=== PATIENT | female | born 1940 | race Caucasian/White ===

== ENCOUNTER 2018-06-11 09:06 | Outpatient (CLI) | payer MEDICARE ==
[2018-06-11 09:48] LABS: Albumin 4.4 g/dL (3.9-5); Calcium 9.4 mg/dL (8.4-10.2); Uric Acid 5.8 mg/dL (3.5-7.6)
[2018-06-11 11:45] LABS: Creatinine,Urine 172.6 mg/dL (0.1-20.0)
[2018-06-11 11:47] LABS: Microalbumin/Creatinine Ratio 6.9 ug/mg
== END 2018-06-11 09:07 | disposition home or self-care (01) ==
LOC: LAB 09:06
PROVIDERS: ATTEND Internal Medicine Nephrology
DX: N28.1 Cyst of kidney, acquired (principal)
CPT/HCPCS: 36415; 80048; 82040; 82043; 84100; 84550

== ENCOUNTER 2018-06-15 11:53 | Outpatient (CLI) | payer MEDICARE ==
--- NOTE | 2018-06-18 09:23 | Ultrasound Report ---
ULTRASOUND RENAL BILATERAL HISTORY: Cyst of kidney. TECHNIQUE: transabdominal ultrasound with color Doppler interrogation. FINDINGS: The right kidney measures 8.4 x 3.6 x 3.3cm. Right renal cortex: 0.9cm. The left kidney measures 8.8 x 4.1 x 3.5cm. Left renal cortex: 0.7cm. Both kidneys are mildly atrophic with increased renal echotexture consistent with mild chronic renal parenchymal disease. A 5 mm cyst is identified at the inferior pole of the right kidney. There are 2 cysts near the inferior pole of the left kidney measuring 8 mm and 17 mm. No suspicious mass, calculus or hydronephrosis. The bladder is unremarkable. IMPRESSION: Chronic renal parenchymal disease. Bilateral small simple appearing cysts. See above.
== END 2018-06-15 11:54 | disposition home or self-care (01) ==
LOC: US 11:53
PROVIDERS: ATTEND Internal Medicine Nephrology
DX: N28.1 Cyst of kidney, acquired (principal); N18.9 Chronic kidney disease, unspecified
CPT/HCPCS: 76770

== ENCOUNTER 2019-02-26 17:36 | Emergency (ER) | payer MEDICARE ==
--- NOTE | 2019-02-26 17:52 | Event Note ---
ED Screening Note Date of service: 02/26/19 Time: 17:47 ED Screening Note: This is a 78 y.o. F. that presents to the ER with left flank pain and dysuria since 1400. Denies n/v/d, urinary frequency, urgency, and hematuria Came back from [place] 2 weeks ago. PMH HTN, HLD, & GERD This initial assessment/diagnostic orders/clinical plan/treatment(s) is/are subject to change based on patients health status, clinical progression and re- assessment by fellow clinical providers in the ED. Further treatment and workup at subsequent clinical providers discretion. Patient/guardian urged not to elope from the ED as their condition may be serious if not clinically assessed and managed. Initial orders include: Labs and CT of abdomen
[2019-02-26 18:32] LABS: Basophils # (Auto) 0.1 K/mm3 (0.0-0.1); Basophils % (Auto) 0.7 % (0.0-1.8); Eosinophils # (Auto) 0.1 K/mm3 (0.0-0.4); Eosinophils % (Auto) 1.3 % (0.0-4.3); Hematocrit 37.3 % (30.3-42.9); Hemoglobin 12.7 gm/dl (10.1-14.3); Lymphocytes # (Auto) 1.2 K/mm3 (1.2-5.4); Lymphocytes % (Auto) 14.8 % (13.4-35.0); Mean Corpuscular HGB Conc 34 % (30-34); Mean Corpuscular Volume 86 fl (79-97); Monocytes # (Auto) 0.3 K/mm3 (0.0-0.8); Monocytes % (Auto) 4.3 % (0.0-7.3); Platelet Count 282 K/mm3 (140-440); Red Blood Count 4.33 M/mm3 (3.65-5.03); Red Cell Distribution Width 13.4 % (13.2-15.2)
[2019-02-26 18:54] LABS: Albumin 4.4 g/dL (3.9-5); Calcium 9.4 mg/dL (8.4-10.2)
[2019-02-26] MEDS ORDERED: MORPHINE 4 MG/1 ML INJ IV ONE (19:04)
[2019-02-26] MEDS ORDERED: ONDANSETRON 4 MG/2 ML INJ IV ONE (19:04)
[2019-02-26] MEDS ORDERED: SODIUM CHLORIDE 0.9% 1000 ML 1,000 ML IV ONE (19:09)
[2019-02-26 19:37] LABS: Bilirubin,Urine NEG (Negative); Blood,Urine NEG (Negative); Color,Urine Yellow (Yellow); Mucus,Urine FEW /HPF; Urobilinogen,Urine < 2.0 mg/dL (<2.0)
[2019-02-26] MEDS ORDERED: cefTRIAXone/NS 1 GM/50 ML 1 GM/50 ML BAG IV ONE (19:56)
--- NOTE | 2019-02-26 20:45 | Cat Scan Report ---
CT abdomen pelvis w con INDICATION: left flank pain. TECHNIQUE: All CT scans at this location are performed using the following dose modulation technique: Automated exposure control. Helical slices were obtained through the abdomen and pelvis. 60 cc of Omnipaque 300 is administered. COMPARISON: Renal ultrasound dated 06/15/2018 FINDINGS: Abdomen: No acute abnormality is seen in the lung bases. Liver, spleen, pancreas, adrenal glands, and small bowel show no acute abnormality. Tiny cysts noted in the kidneys. There is mild hydroureterone phrosis on the left. Atherosclerotic calcifications are noted in the aorta and iliac arteries. There is mild ectasia of th e abdominal aorta. Pelvis: There is sigmoid diverticulosis. There is no CT evidence of diverticulitis. On review of bone windows, no acute osseous abnormalities are seen. IMPRESSION: 1. There is mild left hydroureteronephrosis. The cause is not determined by this study. There are no renal or ureteral calculi seen. There is no bowel obstruction, inflammation, or free air. Signer Name: August Sands MD Signed: 02/26/2019 8:41 PM Workstation Name: [id number]
--- NOTE | 2019-02-26 20:54 | Emergency Department Report ---
ED Abdominal Pain HPI - General Chief Complaint: Abdominal Pain Stated Complaint: LFT SIDE STOMACH PAIN Time Seen by Provider: 02/26/19 17:46 Source: patient Mode of arrival: Ambulatory Limitations: No Limitations - History of Present Illness Initial Comments: This is a 78 y.o. F. that presents to the ER with left flank pain and dysuria since 1400. Denies n/v/d, urinary frequency, urgency, and hematuria Came back from [place] 2 weeks ago. PMH HTN, HLD, & GERD Complaint: abdominal pain -: This afternoon Location: LLQ Radiation: none Migration to: no migration Severity scale (0 -10): 10 Quality: cramping, stabbing, sharp Consistency: constant Improves With: nothing Worsens With: nothing Associated Symptoms: denies other symptoms, diarrhea, dysuria. denies: nausea, vomiting - Related Data Previous Rx's Medication Instructions Recorded Last Taken Type HYDROcodone/APAP 5-325 [[place] 1 each PO Q6HR PRN #12 tablet 02/26/19 Unknown Rx 5/325] Ibuprofen [Motrin 600 MG tab] 600 mg PO Q8H PRN #21 tablet 02/26/19 Unknown Rx Nitrofurantoin [place]/M-Cryst 100 mg PO Q12HR 10 Days #20 capsule 02/26/19 Unknown Rx [Macrobid CAP] Allergies Allergy/AdvReac Type Severity Reaction Status Date / Time No Known Allergies Allergy Unverified 05/11/15 07:19 ED Review of Systems ROS: Stated complaint: LFT SIDE STOMACH PAIN Other details as noted in HPI ED Past Medical Hx - Past Medical History Hx Hypertension: Yes Additional medical history: high cholesterol - Surgical History Past Surgical History?: No - Social History Smoking Status: Never Smoker Substance Use Type: None - Medications Home Medications: Home Medications Medication Instructions Recorded Confirmed Last Taken Type HYDROcodone/APAP 5-325 [[place] 1 each PO Q6HR PRN #12 tablet 02/26/19 Unknown Rx 5/325] Ibuprofen [Motrin 600 MG tab] 600 mg PO Q8H PRN #21 tablet 02/26/19 Unknown Rx Nitrofurantoin [place]/M-Cryst 100 mg PO Q12HR 10 Days #20 capsule 02/26/19 Unknown Rx [Macrobid CAP] ED Physical Exam - General Limitations: No Limitations, Language Barrier General appearance: alert, in no apparent distress - Head Head exam: Present: atraumatic, normocephalic - Eye Eye exam: Present: normal appearance - ENT ENT exam: Present: mucous membranes moist - Neck Neck exam: Present: normal inspection, full ROM - GI/Abdominal GI/Abdominal exam: Present: soft, tenderness. Absent: distended - Extremities Exam Extremities exam: Present: normal inspection - Back Exam Back exam: Present: normal inspection - Neurological Exam Neurological exam: Present: alert, oriented X3 - Psychiatric Psychiatric exam: Present: normal affect, normal mood - Skin Skin exam: Present: warm, dry, intact, normal color. Absent: rash ED Course Vital Signs 02/26/19 02/26/19 02/26/19 17:41 18:21 18:26 Temperature Pulse Rate 76 Respiratory 20 18 Rate Blood Pressure Blood Pressure 255/98 [Left] O2 Sat by Pulse 100 99 100 Oximetry 02/26/19 02/26/19 02/26/19 18:31 18:53 19:00 Temperature 98.4 F Pulse Rate 72 76 81 Respiratory 17 18 19 Rate Blood Pressure 228/89 228/89 Blood Pressure 225/123 [Left] O2 Sat by Pulse 100 100 97 Oximetry 02/26/19 02/26/19 20:16 20:31 Temperature Pulse Rate 74 Respiratory 16 Rate Blood Pressure 157/65 Blood Pressure [Left] O2 Sat by Pulse 99 Oximetry ED Medical Decision Making - Lab Data Result diagrams: 02/26/19 18:22 02/26/19 18:22 - Radiology Data Radiology results: report reviewed Ordering Physician: JAZ GARIBAY Date of Service: 02/26/19 Procedure(s): CT abdomen pelvis w con Accession Number(s): [id number] cc: JAZ GARIBAY CT abdomen pelvis w con INDICATION: left flank pain. TECHNIQUE: All CT scans at this location are performed using the following dose modulation technique: Automated exposure control. Helical slices were obtained through the abdomen and pelvis. 60 cc of Omnipaque 300 is administered. COMPARISON: Renal ultrasound dated 06/15/2018 FINDINGS: Abdomen: No acute abnormality is seen in the lung bases. Liver, spleen, pancreas, adrenal glands, and small bowel show no acute abnormality. Tiny cysts noted in the kidneys. There is mild hydroureteronephrosis on the left. Atherosclerotic calcifications are noted in the aorta and iliac arteries. There is mild ectasia of the abdominal aorta. Pelvis: There is sigmoid diverticulosis. There is no CT evidence of diverticulitis. On review of bone windows, no acute osseous abnormalities are seen. IMPRESSION: 1. There is mild left hydroureteronephrosis. The cause is not determined by this study. There are no renal or ureteral calculi seen. There is no bowel obstruction, inflammation, or free air. Signer Name: August Sands MD Signed: 02/26/2019 8:41 PM Workstation Name: [id number] Transcribed By: SS Dictated By: August Sands MD Electronically Authenticated By: August Sands MD Signed Date/Time: 02/26/192040 DD/ 35 TD/TT: - Medical Decision Making This is a 78 y.o. F. that presents to the ER with left flank pain and dysuria since 1400. Denies n/v/d, urinary frequency, urgency, and hematuria Came back from [place] 2 weeks ago. PMH HTN, HLD, & GERD Critical care attestation.: If time is entered above; I have spent that time in minutes in the direct care of this critically ill patient, excluding procedure time. ED Disposition Clinical Impression: UTI (urinary tract infection), Hydronephrosis Disposition: - TO HOME OR SELFCARE Is pt being admited?: No Does the pt Need Aspirin: No Condition: Stable Instructions: Abdominal Pain (ED) Prescriptions: Nitrofurantoin [place]/M-Cryst [Macrobid CAP] 100 mg PO Q12HR 10 Days #20 capsule Ibuprofen [Motrin 600 MG tab] 600 mg PO Q8H PRN #21 tablet PRN Reason: Pain HYDROcodone/APAP 5-325 [[place] 5/325] 1 each PO Q6HR PRN #12 tablet PRN Reason: Pain Referrals: PRIMARY CARE, [Primary Care Provider] - 3-5 Days ANTONIA EPSTEIN MD [Staff Physician] - 3-5 Days
[2019-02-26] MEDS ORDERED: FLUCONAZOLE 100 MG TAB PO ONE (21:31)
[2019-02-26 22:33] VITALS: BP 167/72
== END 2019-02-26 22:42 | disposition home or self-care (01) ==
LOC: ED 17:36
DX: N39.0 Urinary tract infection, site not specified (principal); N13.30 Unspecified hydronephrosis; I10 Essential (primary) hypertension; E78.00 Pure hypercholesterolemia, unspecified; Z79.899 Other long term (current) drug therapy
CPT/HCPCS: 36415; 74177; 80053; 81001; 83690; 85025; 87086; 96365; 96375; 99284; J0696; J2270; J2405; J7030; Q9967

== ENCOUNTER 2019-03-13 07:17 | Outpatient (CLI) | payer MEDICARE ==
[2019-03-13 07:48] LABS: Basophils % (Auto) 0.7 % (0.0-1.8); Eosinophils # (Auto) 0.2 K/mm3 (0.0-0.4); Eosinophils % (Auto) 3.8 % (0.0-4.3); Hematocrit 38.6 % (30.3-42.9); Lymphocytes # (Auto) 1.9 K/mm3 (1.2-5.4); Lymphocytes % (Auto) 42.9 % (13.4-35.0); Mean Corpuscular HGB Conc 34 % (30-34); Mean Corpuscular Volume 87 fl (79-97); Monocytes # (Auto) 0.3 K/mm3 (0.0-0.8); Monocytes % (Auto) 6.7 % (0.0-7.3); Platelet Count 273 K/mm3 (140-440); Red Blood Count 4.45 M/mm3 (3.65-5.03); Red Cell Distribution Width 13.1 % (13.2-15.2)
[2019-03-13 08:18] LABS: Albumin 4.3 g/dL (3.9-5); Calcium 9.1 mg/dL (8.4-10.2)
[2019-03-13 10:53] LABS: Creatinine,Urine 196.1 mg/dL (0.1-20.0); Microalbumin/Creatinine Ratio 21.9 ug/mg
[2019-03-13 11:09] LABS: Hepatitis B Surface Antigen Non-Reactive (Negative); Hepatitis C Virus Antibody Non-Reactive (NonReactive)
== END 2019-03-13 07:18 | disposition home or self-care (01) ==
LOC: LAB 07:17
PROVIDERS: ATTEND Student in an Organized Health Care Education/Training Program
DX: I12.9 Hypertensive chronic kidney disease with stage 1 through stage 4 chronic kidney disease, or unspecified chronic kidney disease (principal); N18.3 Chronic kidney disease, stage 3 (moderate); N28.1 Cyst of kidney, acquired; E78.5 Hyperlipidemia, unspecified; R94.4 Abnormal results of kidney function studies
CPT/HCPCS: 36415; 80048; 80074; 82040; 82043; 83970; 84100; 85025; 86225

== ENCOUNTER 2019-04-30 07:43 | Outpatient (CLI) | payer MEDICARE ==
--- NOTE | 2019-04-30 09:13 | Ultrasound Report ---
ULTRASOUND RENAL INDICATION / CLINICAL INFORMATION: N18.3 [id number]. COMPARISON: Renal ultrasound from 06/15/2018 FINDINGS: RIGHT KIDNEY: Length = 8.6 cm. [normal > 9 cm] - Parenchymal Thickness = 1.0 cm. [normal > 1.5 cm] - Echogenicity: Increased - Hydronephrosis: None. - Cyst or mass: No significant abnormality. - Stones: None seen. LEFT KIDNEY: Length = 8.5 cm. [normal > 9 cm] - Parenchymal Thickness = 1.1 cm. [normal > 1.5 cm] - Echogenicity: Increased - Hydronephrosis: Mild - Cyst or mass: Simple cyst measuring 1.7 cm in the mid to lower pole region. - Stones: None seen. URINARY BLADDER: No significant abnormality. FREE FLUID: None. ADDITIONAL FINDINGS: None. IMPRESSION: 1. Atrophic and echogenic kidneys as outlined above may be seen with medical renal disease. 2. Simple left renal cyst and mild left-sided pelvocaliectasis. Signer Name: Jesús Randolph MD Signed: 04/30/2019 9:08 AM Workstation Name: [id number]
== END 2019-04-30 07:44 | disposition home or self-care (01) ==
LOC: US 07:43
PROVIDERS: ATTEND Student in an Organized Health Care Education/Training Program
DX: N28.1 Cyst of kidney, acquired (principal); N18.3 Chronic kidney disease, stage 3 (moderate)
CPT/HCPCS: 76770

== ENCOUNTER 2019-06-19 07:16 | Outpatient (CLI) | payer MEDICARE ==
[2019-06-19 07:55] LABS: Albumin 4.4 g/dL (3.9-5); Calcium 9.2 mg/dL (8.4-10.2)
== END 2019-06-19 07:17 | disposition home or self-care (01) ==
LOC: LAB 07:16
PROVIDERS: ATTEND Student in an Organized Health Care Education/Training Program
DX: I12.9 Hypertensive chronic kidney disease with stage 1 through stage 4 chronic kidney disease, or unspecified chronic kidney disease (principal); N18.3 Chronic kidney disease, stage 3 (moderate); N28.1 Cyst of kidney, acquired; R94.4 Abnormal results of kidney function studies; E78.5 Hyperlipidemia, unspecified
CPT/HCPCS: 36415; 80048; 82040; 84100

== ENCOUNTER 2020-01-29 09:32 | Emergency (ER) | payer MEDICARE ==
[2020-01-29] MEDS ORDERED: hydrALAZINE 20 MG/1 ML INJ IV ONE (11:04)
[2020-01-29 11:15] LABS: Basophils % (Auto) 0.8 % (0.0-1.8); Eosinophils # (Auto) 0.1 K/mm3 (0.0-0.4); Eosinophils % (Auto) 2.4 % (0.0-4.3); Hematocrit 40.1 % (30.3-42.9); Hemoglobin 13.5 gm/dl (10.1-14.3); Lymphocytes # (Auto) 1.3 K/mm3 (1.2-5.4); Lymphocytes % (Auto) 27.5 % (13.4-35.0); Mean Corpuscular HGB Conc 34 % (30-34); Mean Corpuscular Volume 86 fl (79-97); Monocytes # (Auto) 0.3 K/mm3 (0.0-0.8); Monocytes % (Auto) 5.7 % (0.0-7.3); Platelet Count 278 K/mm3 (140-440); Red Blood Count 4.68 M/mm3 (3.65-5.03); Red Cell Distribution Width 12.9 % (13.2-15.2)
[2020-01-29 11:33] LABS: INR 1.12 (0.87-1.13)
[2020-01-29 11:34] LABS: Partial Thromboplastin Time 35.4 Sec. (24.2-36.6)
[2020-01-29 11:38] LABS: Alanine Aminotransferase 10 units/L (7-56); Albumin 4.5 g/dL (3.9-5)
[2020-01-29 11:39] LABS: Bilirubin,Direct < 0.2 mg/dL (0-0.2)
[2020-01-29 11:41] LABS: Creatine Kinase MB 1.4 ng/mL (0.0-4.0)
[2020-01-29 11:42] LABS: BUN/Creatinine Ratio 21; Blood Urea Nitrogen 21 mg/dL (7-17); Calcium 9.3 mg/dL (8.4-10.2); Hemolysis Index 31
--- NOTE | 2020-01-29 11:51 | XRay Report ---
CHEST 1 VIEW 01/29/2020 10:47 AM INDICATION / CLINICAL INFORMATION: Dyspnea. COMPARISON: None available. FINDINGS: SUPPORT DEVICES: None. HEART / MEDIASTINUM: Heart is mildly enlarged. LUNGS / PLEURA: No significant pulmonary or pleural abnormality. No pneumothorax. ADDITIONAL FINDINGS: No significant additional findings. IMPRESSION: 1. Mild cardiomegaly. No acute pulmonary or pleural findings. Signer Name: Bjorn Ralph MD Signed: 01/29/2020 11:46 AM Workstation Name: [id number]
--- NOTE | 2020-01-29 12:14 | Emergency Department Report ---
ED General Adult HPI - General Chief complaint: High BP Stated complaint: HBP Time Seen by Provider: 01/29/20 10:43 Source: patient, family Mode of arrival: Ambulatory Limitations: Language Barrier - History of Present Illness Initial comments: This is a [place] Irish-speaking 79-year-old lady who tells me she feels fine. She was sent for evaluation by her primary care physician who found substantial hypertension. She is completely asymptomatic. Severity scale (0 -10): 0 - Related Data Home Medications Medication Instructions Recorded Confirmed Last Taken Aspirin [Aspirin BABY CHEW TAB] 81 mg PO QDAY 01/29/20 01/29/20 Unknown AtorvaSTATin [Lipitor] 10 mg PO QHS 01/29/20 01/29/20 Unknown Ezetimibe [Zetia] 10 mg PO QDAY 01/29/20 01/29/20 Unknown Omeprazole 40 mg PO QDAY 01/29/20 01/29/20 Unknown amLODIPine [Norvasc] 10 mg PO DAILY 01/29/20 01/29/20 Unknown hydroCHLOROthiazide [HCTZ] 25 mg PO QDAY 01/29/20 01/29/20 Unknown Previous Rx's Medication Instructions Recorded Last Taken Type Losartan/Hydrochlorothiazide 1 each PO DAILY #30 tablet 01/29/20 Unknown Rx [Losartan-Hctz 50-12.5 mg Tab] labetaloL [Labetalol 100mg TAB] 100 mg PO BID #60 tablet 01/29/20 Unknown Rx Allergies Allergy/AdvReac Type Severity Reaction Status Date / Time No Known Allergies Allergy Unverified 05/11/15 07:19 ED Review of Systems ROS: Stated complaint: HBP Other details as noted in HPI Constitutional: denies: chills, fever Eyes: denies: eye pain, vision change ENT: denies: ear pain, throat pain Respiratory: denies: cough, shortness of breath, wheezing Cardiovascular: denies: chest pain, palpitations Endocrine: no symptoms reported Gastrointestinal: denies: abdominal pain, nausea, diarrhea Genitourinary: denies: urgency, dysuria, discharge Musculoskeletal: denies: back pain, joint swelling, arthralgia Skin: denies: rash, lesions Neurological: denies: headache, weakness, paresthesias Psychiatric: denies: anxiety, depression Hematological/Lymphatic: denies: easy bleeding, easy bruising ED Past Medical Hx - Past Medical History Hx Hypertension: Yes Additional medical history: high cholesterol - Social History Smoking Status: Never Smoker Substance Use Type: None - Medications Home Medications: Home Medications Medication Instructions Recorded Confirmed Last Taken Type Aspirin [Aspirin BABY CHEW TAB] 81 mg PO QDAY 01/29/20 01/29/20 Unknown History AtorvaSTATin [Lipitor] 10 mg PO QHS 01/29/20 01/29/20 Unknown History Ezetimibe [Zetia] 10 mg PO QDAY 01/29/20 01/29/20 Unknown History Losartan/Hydrochlorothiazide 1 each PO DAILY #30 tablet 01/29/20 Unknown Rx [Losartan-Hctz 50-12.5 mg Tab] Omeprazole 40 mg PO QDAY 01/29/20 01/29/20 Unknown History amLODIPine [Norvasc] 10 mg PO DAILY 01/29/20 01/29/20 Unknown History hydroCHLOROthiazide [HCTZ] 25 mg PO QDAY 01/29/20 01/29/20 Unknown History labetaloL [Labetalol 100mg TAB] 100 mg PO BID #60 tablet 01/29/20 Unknown Rx ED Physical Exam - General Limitations: Language Barrier General appearance: alert, in no apparent distress - Head Head exam: Present: atraumatic, normocephalic - Eye Eye exam: Present: normal appearance. Absent: scleral icterus - ENT ENT exam: Present: mucous membranes moist - Neck Neck exam: Present: normal inspection - Respiratory Respiratory exam: Present: normal lung sounds bilaterally. Absent: respiratory distress - Cardiovascular Cardiovascular Exam: Present: regular rate, normal rhythm. Absent: systolic murmur, diastolic murmur, rubs, gallop - GI/Abdominal GI/Abdominal exam: Present: soft, normal bowel sounds. Absent: distended, tenderness, guarding, rebound - Extremities Exam Extremities exam: Present: normal inspection, normal capillary refill. Absent: pedal edema, joint swelling, calf tenderness - Back Exam Back exam: Present: normal inspection - Neurological Exam Neurological exam: Present: alert, oriented X3, CN II-XII intact, normal gait. Absent: motor sensory deficit - Psychiatric Psychiatric exam: Present: normal affect, normal mood - Skin Skin exam: Present: warm, dry, intact, normal color. Absent: rash ED Course Vital Signs 01/29/20 01/29/20 01/29/20 09:47 10:47 11:00 Temperature 97.9 F Pulse Rate 71 60 Respiratory 18 19 16 Rate Blood Pressure 253/96 Blood Pressure 252/110 [Right] O2 Sat by Pulse 100 96 Oximetry 01/29/20 01/29/20 01/29/20 11:01 11:18 11:22 Temperature Pulse Rate 57 L 58 L 58 L Respiratory 20 Rate Blood Pressure 253/96 185/72 Blood Pressure 185/72 [Right] O2 Sat by Pulse 97 Oximetry 01/29/20 01/29/20 01/29/20 11:30 11:46 12:00 Temperature Pulse Rate 73 74 76 Respiratory 22 20 20 Rate Blood Pressure 160/70 159/68 146/64 Blood Pressure [Right] O2 Sat by Pulse 97 96 96 Oximetry - Reevaluation(s) Reevaluation #1: Patient remains asymptomatic. I will begin her on losartan/HCTZ and labetalol. 01/29/20 12:46 ED Medical Decision Making - Lab Data Result diagrams: 01/29/20 10:55 01/29/20 10:55 Critical care attestation.: If time is entered above; I have spent that time in minutes in the direct care of this critically ill patient, excluding procedure time. ED Disposition Clinical Impression: Accelerated essential hypertension Disposition: DC-01 TO HOME OR SELFCARE Is pt being admited?: No Does the pt Need Aspirin: No Condition: Stable Instructions: Hypertension (ED) Additional Instructions: Rx as directed. Follow-up with Dr. Hunter. Return any acute change or problem. Prescriptions: labetaloL [Labetalol 100mg TAB] 100 mg PO BID #60 tablet Losartan/Hydrochlorothiazide [Losartan-Hctz 50-12.5 mg Tab] 1 each PO DAILY #30 tablet Referrals: JORGE HUNTER MD [Primary Care Provider] - 24 Hours Time of Disposition: 12:51
[2020-01-29 14:47] VITALS: BP 164/72
== END 2020-01-29 14:47 | disposition home or self-care (01) ==
LOC: ED 09:32
DX: I10 Essential (primary) hypertension (principal); Z79.899 Other long term (current) drug therapy
CPT/HCPCS: 36415; 71045; 80048; 80076; 82550; 82553; 83880; 84484; 85025; 85610; 85730; 93005; 96374; 96375; 99284; J0360

== ENCOUNTER 2021-06-14 08:33 | Outpatient (CLI) | payer MEDICARE ==
[2021-06-14 09:21] LABS: Albumin 4.5 g/dL (3.9-5); Calcium 9.6 mg/dL (8.4-10.2)
[2021-06-14 14:17] LABS: Creatinine,Urine 64.5 mg/dL (0.1-20.0); Protein/Creatinine Ratio,Urine 0.09
== END 2021-06-14 08:34 | disposition home or self-care (01) ==
LOC: LAB 08:33
PROVIDERS: ATTEND Student in an Organized Health Care Education/Training Program
DX: I12.9 Hypertensive chronic kidney disease with stage 1 through stage 4 chronic kidney disease, or unspecified chronic kidney disease (principal); N18.30 Chronic kidney disease, stage 3 unspecified; N28.1 Cyst of kidney, acquired; E78.5 Hyperlipidemia, unspecified
CPT/HCPCS: 36415; 80048; 82040; 82570; 84100; 84156

== ENCOUNTER 2021-09-14 08:09 | Emergency (ER) | payer MEDICARE ==
[2021-09-14 08:39] VITALS: BP 141/59
[2021-09-14 10:33] LABS: Basophils % (Auto) 0.4 % (0.0-1.8); Eosinophils # (Auto) 0.1 K/mm3 (0.0-0.4); Eosinophils % (Auto) 0.8 % (0.0-4.3); Hematocrit 33.6 % (30.3-42.9); Hemoglobin 11.1 gm/dl (10.1-14.3); Lymphocytes # (Auto) 0.7 K/mm3 (1.2-5.4); Lymphocytes % (Auto) 7.6 % (13.4-35.0); Mean Corpuscular HGB Conc 33 % (30-34); Mean Corpuscular Volume 87 fl (79-97); Monocytes # (Auto) 0.7 K/mm3 (0.0-0.8); Monocytes % (Auto) 7.7 % (0.0-7.3); Platelet Count 343 K/mm3 (140-440); Red Blood Count 3.87 M/mm3 (3.65-5.03); Red Cell Distribution Width 13.4 % (13.2-15.2)
[2021-09-14 11:05] LABS: Albumin 4.6 g/dL (3.9-5); BUN/Creatinine Ratio 22; Blood Urea Nitrogen 41 mg/dL (7-17); Calcium 9.5 mg/dL (8.4-10.2); Hemolysis Index 7
[2021-09-14 11:06] LABS: Alanine Aminotransferase < 5 units/L (7-56)
[2021-09-14] MEDS ORDERED: ONDANSETRON 4 MG ODT TAB PO ONE (11:11)
[2021-09-14] MEDS ORDERED: FAMOTIDINE 20 MG TAB PO ONE (11:11)
[2021-09-14] MEDS ORDERED: MORPHINE 2 MG/1 ML INJ IM ONE (11:12)
--- NOTE | 2021-09-14 12:53 | Cat Scan Report ---
CT ABDOMEN AND PELVIS WITHOUT CONTRAST HISTORY: abdominal and flank pain pain COMPARISON: 02/26/2019 TECHNIQUE: Axial CT images were obtained through the abdomen and pelvis without IV contrast. Sagittal and coronal reformatted images. All CT scans at this location are performed using CT dose reduction for ALARA by means of automated exposure control. FINDINGS: CT ABDOMEN: Lung Bases: Heart size is borderline. Small pericardial effusion is identified which is new. Trace ri ght pleural effusion is also identified. The visualized lung bases are well-aerated. Liver: No significant abnormality. Biliary: No significant abnormality. Spleen: No significant abnormality. Unenlarged. Pancreas: No significant abnormality. Adrenals: No significant abnormality. Kidneys: Mild left hydroureteronephrosis is again suggested without obvious obstructing lesion in the left ureter. The kidneys are otherwise unremarkable. No evidence for nephrolithiasis, cystic disease or obvious mass. Lymphatics: No lymphadenopathy. Vasculature: Mild atherosclerotic disease without acute abnormality. Bowel/Peritoneum: No significant abnormality. No free air. No free fluid. Mild diverticulosis of the distal colon is noted. No acute inflammation, obstruction, free fluid, free air or fluid collection. The appendix is normal. CT PELVIS: : The uterus, adnexa and bladder are unremarkable. Osseous Structures: No suspicious bony lesion or fracture. Additional Findings: None IMPRESSION: No acute inflammatory process is appreciated. Mild left hydroureteronephrosis is suggested which appears unchanged since 02/26/2019 exam. No obviou s obstructing lesion is identified in the left collecting system. Mild diverticulosis of the colon. Borderline heart size. Small pericardial effusion and trace right pleural effusion. Signer Name: Kt Bustillos Jr, MD Signed: 09/14/2021 12:48 PM Workstation Name: [id number]
[2021-09-14 12:54] LABS: Bilirubin,Urine NEG (Negative); Blood,Urine MOD (Negative); Color,Urine Yellow (Yellow); Urobilinogen,Urine < 2.0 mg/dL (<2.0)
[2021-09-14 13:05] LABS: Mucus,Urine FEW /HPF
[2021-09-14 13:09] LABS: WBC,Urine > 182.0 /HPF (0.0-6.0)
[2021-09-14] MEDS ORDERED: LIDOCAINE-MPF (1%) 10 MG/1 ML VIAL 5 ML INFILTRATI ONE (13:29)
[2021-09-14] MEDS ORDERED: traMADol 50 MG TAB PO ONE (13:30)
--- NOTE | 2021-09-14 13:38 | Emergency Department Report ---
ED Abdominal Pain HPI - General Chief Complaint: Abdominal Pain Stated Complaint: BODY ACHE/CHILLS Time Seen by Provider: 09/14/21 10:42 Source: patient Mode of arrival: Ambulatory Limitations: Language Barrier - History of Present Illness Initial Comments: 81-year-old female with a past medical history of hypertension, hyperlipidemia, and GERD presents to the emergency department for evaluation of 1 day history of abdominal pain, right flank pain, chills, and dysuria. Patient states that pain is in her epigastric area as well as her bilateral lower quadrants and suprapubic area along with some nausea and back pain. She denies vomiting, diarrhea, fever, chest pain, shortness of breath. MD Complaint: abdominal pain -: Gradual, days(s) (1) Location: LLQ, RLQ, epigastric, suprapubic Radiation: R flank, back Migration to: no migration Severity scale (0 -10): 10 Quality: aching Consistency: constant Worsens With: other (Urination) Associated Symptoms: nausea, chills, dysuria. denies: vomiting, diarrhea, fever, hematemesis, hematochezia, melena, hematuria, anorexia, syncope - Related Data LMP (females 10-50): other (Menopausal) Home Medications Medication Instructions Recorded Confirmed Last Taken Aspirin [Aspirin BABY CHEW TAB] 81 mg PO QDAY 01/29/20 01/29/20 Unknown AtorvaSTATin [Lipitor] 10 mg PO QHS 01/29/20 01/29/20 Unknown Ezetimibe [Zetia] 10 mg PO QDAY 01/29/20 01/29/20 Unknown Omeprazole 40 mg PO QDAY 01/29/20 01/29/20 Unknown amLODIPine [Norvasc] 10 mg PO DAILY 01/29/20 01/29/20 Unknown hydroCHLOROthiazide [HCTZ] 25 mg PO QDAY 01/29/20 01/29/20 Unknown Previous Rx's Medication Instructions Recorded Last Taken Type Losartan/Hydrochlorothiazide 1 each PO DAILY #30 tablet 01/29/20 Unknown Rx [Losartan-Hctz 50-12.5 mg Tab] labetaloL [Labetalol 100mg TAB] 100 mg PO BID #60 tablet 01/29/20 Unknown Rx Ciprofloxacin HCl 500 mg PO BID 5 Days #10 tab 09/14/21 Unknown Rx Allergies Allergy/AdvReac Type Severity Reaction Status Date / Time No Known Allergies Allergy Unverified 05/11/15 07:19 ED Review of Systems ROS: Stated complaint: BODY ACHE/CHILLS Other details as noted in HPI Comment: All other systems reviewed and negative Constitutional: chills, malaise. denies: diaphoresis, fever, weakness Eyes: denies: vision change ENT: denies: congestion Respiratory: denies: cough, orthopnea, shortness of breath, SOB with exertion, SOB at rest, stridor, wheezing Cardiovascular: denies: chest pain, palpitations, dyspnea on exertion, orthopnea, edema, syncope, paroxysmal nocturnal dyspnea Gastrointestinal: abdominal pain, nausea. denies: vomiting, diarrhea, hematemesis, melena, hematochezia Genitourinary: dysuria. denies: urgency, frequency, hematuria, discharge Musculoskeletal: back pain, myalgia Neurological: denies: headache, weakness Hematological/Lymphatic: denies: easy bleeding, easy bruising, swollen glands ED Past Medical Hx - Past Medical History Hx Hypertension: Yes Additional medical history: high cholesterol, GERD - Surgical History Past Surgical History?: No - Social History Smoking Status: Never Smoker - Medications Home Medications: Home Medications Medication Instructions Recorded Confirmed Last Taken Type Aspirin [Aspirin BABY CHEW TAB] 81 mg PO QDAY 01/29/20 01/29/20 Unknown History AtorvaSTATin [Lipitor] 10 mg PO QHS 01/29/20 01/29/20 Unknown History Ezetimibe [Zetia] 10 mg PO QDAY 01/29/20 01/29/20 Unknown History Losartan/Hydrochlorothiazide 1 each PO DAILY #30 tablet 01/29/20 Unknown Rx [Losartan-Hctz 50-12.5 mg Tab] Omeprazole 40 mg PO QDAY 01/29/20 01/29/20 Unknown History amLODIPine [Norvasc] 10 mg PO DAILY 01/29/20 01/29/20 Unknown History hydroCHLOROthiazide [HCTZ] 25 mg PO QDAY 01/29/20 01/29/20 Unknown History labetaloL [Labetalol 100mg TAB] 100 mg PO BID #60 tablet 01/29/20 Unknown Rx Ciprofloxacin HCl 500 mg PO BID 5 Days #10 tab 09/14/21 Unknown Rx ED Physical Exam - General Limitations: Language Barrier General appearance: alert, in no apparent distress - Head Head exam: Present: atraumatic, normocephalic - Eye Eye exam: Present: normal appearance. Absent: conjunctival injection - Neck Neck exam: Present: normal inspection, full ROM. Absent: lymphadenopathy - Respiratory Respiratory exam: Present: normal lung sounds bilaterally. Absent: respiratory distress, wheezes, rales, rhonchi, stridor, chest wall tenderness - Cardiovascular Cardiovascular Exam: Present: regular rate, normal heart sounds - GI/Abdominal GI/Abdominal exam: Present: soft, tenderness (Epigastric and bilateral lower quadrants), normal bowel sounds. Absent: distended, guarding, rebound, rigid - Extremities Exam Extremities exam: Present: normal inspection, normal capillary refill. Absent: tenderness, pedal edema, joint swelling, calf tenderness - Back Exam Back exam: Present: normal inspection, tenderness (Right lower ), CVA tenderness (R), CVA tenderness (L). Absent: vertebral tenderness - Neurological Exam Neurological exam: Present: alert, oriented X3, normal gait - Psychiatric Psychiatric exam: Present: normal affect, normal mood - Skin Skin exam: Present: warm, dry, intact, normal color ED Course Vital Signs 09/14/21 08:34 Temperature 98.0 F Pulse Rate 73 Respiratory 16 Rate Blood Pressure 141/59 O2 Sat by Pulse 96 Oximetry - Reevaluation(s) Reevaluation #1: 09/14/21 13:59 Epigastric, lower abdominal, and back pain resolved after medication. Patient states that she feels much better but still feels like she has the chills ED Medical Decision Making - Lab Data Result diagrams: 09/14/21 09:38 09/14/21 09:14 - Radiology Data Radiology results: report reviewed, image reviewed CT abdomen and pelvis without contrast: FINDINGS: CT ABDOMEN: Lung Bases: Heart size is borderline. Small pericardial effusion is identified which is new. Trace right pleural effusion is also identified. The visualized lung bases are well- aerated. Liver: No significant abnormality. Biliary: No significant abnormality. Spleen: No significant abnormality. Unenlarged. Pancreas: No significant abnormality. Adrenals: No significant abnormality. Kidneys: Mild left hydroureteronephrosis is again suggested without obvious obstructing lesion in the left ureter. The kidneys are otherwise unremarkable. No evidence for nep hrolithiasis, cystic disease or obvious mass. Lymphatics: No lymphadenopathy. Vasculature: Mild atherosclerotic disease without acute abnormality. Bowel/Peritoneum: No significant abnormality. No free air. No free fluid. Mild diverticulosis of the distal colon is noted. No acute inflammation, obstruction, free fluid, free air or fluid collection. The appendix is normal. CT PELVIS: : The uterus, adnexa and bladder are unremarkable. Osseous Structures: No suspicious bony lesion or fracture. Additional Findings: None IMPRESSION: No acute inflammatory process is appreciated. Mild left hydroureteronephrosis is suggested which appears unchanged since 02/26/2019 exam. No obvious obstructing lesion is identified in the left collecting system. Mild diverticulosis of the colon. Borderline heart size. Small pericardial effusion and trace right pleural effusion. - Medical Decision Making 81-year-old female with a past medical history of hypertension, hyperlipidemia, and GERD presents to the emergency department for evaluation of 1 day history of abdominal pain, right flank pain, chills, and dysuria. Patient states that pain is in her epigastric area as well as her bilateral lower quadrants and suprapubic area along with some nausea and back pain. She denies vomiting, diarrhea, fever, chest pain, shortness of breath. CVA tenderness and bilateral lower quadrant tenderness noted on exam. CMP, CBC, lipase, and troponin without any gross abnormalities noted. Urine positive for urinary tract infection. CT scan without any acute abnormalities noted but incidental findings of small pericardial effusion and small pleural effusion along with diverticulosis. Patient denies shortness of breath and chest pain and is hemodynamically stable. She will be treated with Rocephin 1 g IM and discharged home with ciprofloxacin 500 mg p.o. twice daily to take for 5 days. She is advised to take medication as prescribed. Incidental findings reviewed with patient and she was advised to follow-up with cardiology for further evaluation and management. She was advised to return to the emergency department immediately if she develops chest pain, shortness of breath, or any concerning symptoms. She verbalizes understanding of and agreement with plan of care. Critical care attestation.: If time is entered above; I have spent that time in minutes in the direct care of this critically ill patient, excluding procedure time. ED Disposition Clinical Impression: Pericardial effusion, Diverticulosis UTI (urinary tract infection) Qualifiers: Urinary tract infection type: acute cystitis Hematuria presence: with hematuria Qualified Code(s): N30.01 - Acute cystitis with hematuria Disposition: HOME / SELF CARE / HOMELESS Is pt being admited?: No Does the pt Need Aspirin: No Condition: Stable Instructions: Antibiotic Medicine, Adult, [id number], Pericardial Effusion, Urinary Tract Infection, Adult, [id number], Diverticulosis, Abdominal Pain (ED) Additional Instructions: Continue your home medications. Take medications as prescribed from the emergency department. You have a small amount of fluid around your heart but not enough to do anything about at this time but you should follow-up with heart doctor for further evaluation and management of this. Follow-up with your primary care provider or to the emergency department as needed. Prescriptions: Ciprofloxacin HCl 500 mg PO BID 5 Days #10 tab Referrals: JACLYN EDMOND MD [Primary Care Provider] - 3-5 Days VONDA FREEDMAN MD [Staff Physician] - 3-5 Days ALEN BHARDWAJ MD [Staff Physician] - 3-5 Days Time of Disposition: 13:38
== END 2021-09-14 14:24 | disposition home or self-care (01) ==
LOC: ED 08:09
DX: I31.3 Pericardial effusion (noninflammatory) (principal); K57.90 Diverticulosis of intestine, part unspecified, without perforation or abscess without bleeding; N39.0 Urinary tract infection, site not specified; I10 Essential (primary) hypertension
CPT/HCPCS: 36415; 74176; 80053; 81001; 83690; 84484; 85025; 96372; 99284; J0696; J2270; J3490; Q0162

== ENCOUNTER 2021-12-10 07:01 | Outpatient (CLI) | payer MEDICARE ==
[2021-12-10 07:40] LABS: Hemoglobin 11.1 gm/dl (10.1-14.3); Mean Corpuscular HGB Conc 34 % (30-34); Mean Corpuscular Volume 87 fl (79-97); Platelet Count 288 K/mm3 (140-440); Red Cell Distribution Width 13.4 % (13.2-15.2)
[2021-12-10 07:44] LABS: Creatinine,Urine 88.2 mg/dL (0.1-20.0); Protein/Creatinine Ratio,Urine 0.11
[2021-12-10 08:23] LABS: Albumin 4.6 g/dL (3.9-5); Calcium 9.5 mg/dL (8.4-10.2)
== END 2021-12-10 07:02 | disposition home or self-care (01) ==
LOC: LAB 07:01
PROVIDERS: ATTEND Internal Medicine
DX: I12.9 Hypertensive chronic kidney disease with stage 1 through stage 4 chronic kidney disease, or unspecified chronic kidney disease (principal); R94.4 Abnormal results of kidney function studies; E78.5 Hyperlipidemia, unspecified; N18.30 Chronic kidney disease, stage 3 unspecified; N28.1 Cyst of kidney, acquired
CPT/HCPCS: 36415; 80048; 82040; 82570; 83970; 84100; 84156; 85027